=== PATIENT | female | born 1985 | race Caucasian/White ===

== ENCOUNTER → 2022-03-21 15:59 | Outpatient (BNVA) | payer BC, MEDICAID, SELFPAY | PROVIDERS: Family Provider Family Medicine; PCP Family Medicine; Visit Provider Family Medicine | DX: Z34.80 Encounter for supervision of other normal pregnancy, unspecified trimester (principal) | CPT/HCPCS: 84443; 85025; 86592; 86762; 87086; 87624 ==

== ENCOUNTER 2022-04-15 14:50 | Outpatient (CLI) | payer BC, MEDICAID, SELFPAY ==
--- NOTE | 2022-04-15 15:07 | US_ITS ---
WS: [id number] EARLY OBSTETRICAL ULTRASOUND (<14 WEEKS). HISTORY: DATING COMPARISON: None available. Single intrauterine gestational sac is identified. Cardiac activity at 167 BPM. [place]-rump length pedro sures 2.0 cm which corresponds to a gestation of 8w4d. Normal-appearing yolk sac and amnion demonstra shila. Very smallsubchorionic hemorrhage.Subchorionic hemorrhage is adjacent to the LEFT lateral gestat ional sac and measures 15 x 6 mm. No free fluid. Normal size ovaries with no mass. US/US OB <= 14 weeks fetus [id number] IMPRESSION: 1. Single intrauterine gestation of 8 weeks 4 days with an EDC of 11/21/2022. 2. Very small subchorionic hemorrhage.
== END 2022-04-15 14:51 | disposition home or self-care (01) ==
LOC: RAD 14:59
PROVIDERS: PCP Family Medicine; Visit Provider Family Medicine
DX: Z36.87 Encounter for antenatal screening for uncertain dates (principal)
CPT/HCPCS: 76801

== ENCOUNTER → 2022-04-29 15:12 | Outpatient (BNVA) | payer BC, MEDICAID, SELFPAY | PROVIDERS: PCP Family Medicine; Visit Provider Family Medicine | DX: Z34.90 Encounter for supervision of normal pregnancy, unspecified, unspecified trimester (principal) | CPT/HCPCS: 80307; 86803; 87086; 87340 ==

== ENCOUNTER → 2022-06-25 15:03 | Outpatient (BNVA) | payer BC, MEDICAID, SELFPAY | PROVIDERS: PCP Family Medicine; Visit Provider Family Medicine | DX: Z34.80 Encounter for supervision of other normal pregnancy, unspecified trimester (principal) | CPT/HCPCS: 86850; 86900; 87806 ==

== ENCOUNTER 2022-07-09 14:21 | Outpatient (CLI) | payer BC, MEDICAID, SELFPAY ==
--- NOTE | 2022-07-09 14:39 | US_ITS ---
WS: [id number] OBSTETRICAL ULTRASOUND COMPLETE HISTORY: ANATOMY COMPARISON: 04/15/2022 Single intrauterine gestation in breech presentation. Cervix is Closed and normal length. Cervical length is 3.3 cm. Normal amount of amniotic fluid surrounds the fetus. Placenta: Posterior, no previa or abruption. Placenta grade 1 There is a thick bandlike structure extending from the inferior margin of the placenta inferiorly tow ards the cervix. There is a small amount of fluid on both sides of this bandlike structure. This is n ot a placental the placental attachment to suggest a circumvallate placenta. This may be attached to the uterine wall or very closely associated with the placenta. Heart: 157 BPM. Four chambers are identified. RIGHT and LEFT outflow tracts are unremarkable. Anatomy: Intracranial structures and spine are normal. kidneys, stomach and urinary bladd er are unremarkable. Abdominal wall, three-vessel cord and cord insertion site are normal. 4 extremities are present. profile: Unremarkable. Gender: Female. measurements: BPD = 4.4 cm = 19w2d HC = 17.4 cm = 20w0d AC = 15.3 cm = 20w3d FL = 3.2 cm = 20w0d EFW: 337 g. Biometry is internally concordant. AGA by ultrasound: 20w0d ROLO by ultrasound: 11/26/2022 Measurements are internally concordant. US/US OB >= 14 weeks fetus [id number] IMPRESSION: 1. Single intrauterine gestation of 20w0d with an ROLO of 11/26/2022. 2. Unremarkable screening survey of anatomy. 3. Lower uterine bandlike structure consistent with an adhesion versus synechi ae. Typically these will resolve by the third trimester. This does not have the appearance of a circumvallate placenta. Consider third term follow-up evaluati on. This adhesion or band like structure does extend very close to the cervix. Typically these are of no consequence.
== END 2022-07-09 14:22 | disposition home or self-care (01) ==
PROVIDERS: PCP Family Medicine; Visit Provider Family Medicine
DX: Z36.89 Encounter for other specified antenatal screening (principal); Z3A.20 20 weeks gestation of pregnancy
CPT/HCPCS: 76805

== ENCOUNTER 2022-09-06 14:51 | Outpatient (CLI) | payer BC, MEDICAID, SELFPAY ==
[2022-09-06 16:45] LABS: Glucose Tolerance 1 Hour Gest 172 mg/dL
== END 2022-09-06 14:52 | disposition home or self-care (01) ==
LOC: LAB 14:52
PROVIDERS: PCP Family Medicine; Visit Provider Family Medicine
DX: Z34.80 Encounter for supervision of other normal pregnancy, unspecified trimester (principal)
CPT/HCPCS: 36415; 82950

== ENCOUNTER → 2022-10-10 14:58 | Outpatient (BNVA) | payer BC, MEDICAID, SELFPAY | PROVIDERS: PCP Family Medicine; Visit Provider Family Medicine | DX: Z36.89 Encounter for other specified antenatal screening (principal) | CPT/HCPCS: 76816 ==

== ENCOUNTER → 2022-10-21 16:03 | Outpatient (BNVA) | payer BC, MEDICAID, SELFPAY | PROVIDERS: PCP Family Medicine; Visit Provider Family Medicine | DX: Z34.90 Encounter for supervision of normal pregnancy, unspecified, unspecified trimester (principal) | CPT/HCPCS: 87081 ==

== ENCOUNTER 2022-10-29 04:01 | Outpatient (CLI) | payer BC, MEDICAID, SELFPAY ==
[2022-10-29] VITALS (12 sets, daily range): BP systolic 102–122; BP diastolic 59–76; PULSE 93–129; RESP 18; TEMP 35.9; BMI 27.1
== END 2022-10-29 06:23 | disposition home or self-care (01) ==
LOC: OPOB 04:02 → OBGYN 04:03
PROVIDERS: PCP Family Medicine; Visit Provider Family Medicine
DX: O26.899 Other specified pregnancy related conditions, unspecified trimester (principal); Z3A.00 Weeks of gestation of pregnancy not specified; R10.9 Unspecified abdominal pain
CPT/HCPCS: 59025; 99211

== ENCOUNTER 2022-10-31 08:30 | Outpatient (CLI) | payer BC, MEDICAID, SELFPAY ==
[2022-10-31 08:32] VITALS: BMI 27.3
[2022-10-31 08:41] VITALS: BP 129/78; PULSE 115
[2022-10-31 09:44] VITALS: BP 104/65; PULSE 144; RESP 15
== END 2022-10-31 09:49 | disposition home or self-care (01) ==
LOC: OPOB 08:30 → OBGYN 08:31
PROVIDERS: PCP Family Medicine; Visit Provider Family Medicine
DX: O26.899 Other specified pregnancy related conditions, unspecified trimester (principal); Z3A.00 Weeks of gestation of pregnancy not specified; N89.8 Other specified noninflammatory disorders of vagina
CPT/HCPCS: 59025; 83986; 99211

== ENCOUNTER 2022-11-17 21:52 | Outpatient (CLI) | payer BC, MEDICAID, SELFPAY ==
[2022-11-17] VITALS (7 sets, daily range): BP systolic 110–133; BP diastolic 70–80; PULSE 77–86; RESP 16; TEMP 35.9–36; BMI 27.9
[2022-11-17 22:41] LABS: Nitrazine Paper, PH Negative
== END 2022-11-17 23:42 | disposition home or self-care (01) ==
LOC: OPOB 21:53 → OBGYN 22:02
PROVIDERS: PCP Family Medicine; Visit Provider Family Medicine
DX: O26.899 Other specified pregnancy related conditions, unspecified trimester (principal); Z3A.00 Weeks of gestation of pregnancy not specified; N89.8 Other specified noninflammatory disorders of vagina
CPT/HCPCS: 59025; 83986; 99211

== ENCOUNTER 2022-11-21 11:12 | Inpatient (IN) | payer BC, MEDICAID, SELFPAY ==
[2022-11-21] VITALS (64 sets, daily range): BP systolic 92–154; BP diastolic 50–82; PULSE 82–171; RESP 18–20; TEMP 36.1–36.6; O2SAT 79–99; BMI 27.5
--- NOTE | 2022-11-21 09:36 | PM.HP ---
Providers/Chief Complaint Primary Care Provider: Vasquez Quarles MD Chief Complaint: contractions History of Present Illness Le Das is a 37 year old @ 39.5 weeks by 8 wk US inconsistent with LMP c/w 5 wk US. Her preg is c/b FOB with spina bifida in family, GBS bacteruria, elevated 1-hr GTT with normal 3-hr GTT The patient has been having contractions off and on, however the suddenly became stronger and woke her up out of her sleep at 7:00 on the morning of admission. They have been coming every 1 to 3 minutes. She is rating them a 9 out of 10 on the pain scale. The patient has not had any leakage of fluid or bleeding. Patient denies chest pains, shortness of breath, nausea, vomiting, diarrhea, constipation, dysuria, fevers. Medications/Allergies Home Medications Medication Instructions Recorded Confirmed Last Taken Type prenat.vits,delmi,ynv-[id number] 1 tab PO DAILY 09/30/22 11/19/22 11/17/22 History Allergies Allergy/AdvReac Type Severity Reaction Status Date / Time Sulfa (Sulfonamide Allergy Severe hives Verified 11/17/22 22:03 Antibiotics) PFSH Acute PFSH: Family History Mother Hypertension Father Hypertension Hyperlipidemia Grandmother Thyroid condition paternal Denies family history of Colon cancer Ovarian cancer Diabetes Clotting disorder Heart disease Breast cancer Anesthesia complication Bleeding disorder Uterine cancer Stroke Social History Smoking and tobacco status: never smoked Alcohol intake: never Vitals/I&O/Wt Last Vital Signs Pulse 107 H 11/21/22 09:15 BP 120/82 11/21/22 09:15 Weight last 48 hrs Weight 141 lb Physical Exam Narrative: General: Alert and oriented x3 Eyes: Pupils equal round and reactive to light and accommodation Mouth: Mucous membranes moist, pharynx non-erythematous Cardiac: Regular rate and rhythm without murmurs Lungs: Clear to auscultation bilaterally without wheezes, crackles or rhonchi Abdomen: Soft, non-tender, fundus consistent with gestational age Extremities: Trace edema in the bilateral lower extremities A&P Assessment and plan (1) Supervision of normal intrauterine in multigravida: The patient is an active labor and was found to be 4.5 cm upon arrival at OB. The patient was 3 cm in clinic on 11/19/2022. The patient is having contractions every 1 to 3 minutes and heart tones are in the mid 140s with moderate variability and good accelerations. She has a category 1 tracing. We will proceed with admission and start antibiotics for GBS prophylaxis. The patient may have Stadol if needed for pain management early. She may be set up for an epidural when she is ready. All questions were answered. Proceed with routine intrapartum management otherwise. Attestations Medical Necessity Statement*: The patient will be here for greater than 2 midnights due to routine intrapartum and management of labor and delivery. Coding Level of Care Code Acute [employer] App[employer]ice for Mohan Goddard Diagnoses Supervision of normal intrauterine in multigravida Z34.80
[2022-11-21] MEDS: lactated ringers 1,000 ML 999 ML IV (09:59)
[2022-11-21] MEDS: ampicillin 2,000 MG in sodium chloride 0.9% (plus) 50 ML 100 MG IV (09:59)
[2022-11-21 10:50] LABS: Basophils % 0.4 %; Eosinophils % 0.4 %; Hematocrit 39.5 % (37.0-47.0); Hemoglobin 13.1 g/dL (11.5-15.3); Mean Corpuscular HGB Conc 33.2 g/dL (30.0-36.0); Mean Corpuscular Volume 96.3 fl (81-99); Mean Platelet Volume 10.2 fL (7.4-10.4); Monocytes # 0.7 10^3/uL (0.2-0.9); Monocytes % 6.7 %; Neutrophils # 6.88 10^3/uL (1.8-7.7); Nucleated Red Blood Cells % 0 %; Platelet Count 277 10^3/cmm (130-400); Red Cell Distribution Width 12.5 % (12.1-15.1); White Blood Count 10.7 10^3/uL (4.0-10.0)
--- NOTE | 2022-11-21 11:30 | ANES.PREANE2 ---
Pre-Anesthetic Assessment Height/Weight: Height 1.52 m Weight 63.957 kg Temp Pulse Resp BP Pulse Ox O2 Del Method 97.8 F 89 18 110/59 98 11/21/22 22:45 11/22/22 04:04 11/21/22 09:30 11/22/22 04:04 11/21/22 13:10 11/21/22 11:53 Preop Diagnosis: IUP + undesired fertility Operation Date: 11/22/22 07:10 Proposed Procedures p Post Bilateral Tubal Ligation(Bilateral) - Hesham Bernstein MD Familial anesthetic complications: none Was Beta Dennys taken within 24 hours: N/A Was Clonidine taken within 24 hours: N/A Social No alcohol and No tobacco Exam alert, oriented x 3, clear to auscultation bilaterally and regular rate & rhythm Airway Mallampati: Class II Dentition: full Anesthetic Plan ASA status: 2 Anesthesia: Regional (specify below) Risk of > 500 ml blood loss (7ml/kg in children): Yes, adequate IV access and fluids planned Medications/Allergies Home Medications Medication Instructions Recorded Confirmed Last Taken Type prenat.vits,delmi,hej-lklr-yhhma 1 tab PO DAILY 09/30/22 11/21/22 11/17/22 History Allergies Allergy/AdvReac Type Severity Reaction Status Date / Time Sulfa (Sulfonamide Allergy Severe hives Verified 11/17/22 22:03 Antibiotics) Current Medications Generic Name Dose Route Start Last Admin Trade Name Freq PRN Reason Stop Dose Admin Dextrose/Lactated Ringer's 1,000 mls @ 125 mls/hr 11/21/22 09:30 11/22/22 05:33 Dextrose 5%-Lactated Ringers IV Not Given .Q8H ENRICO Ampicillin Sodium 1,000 mg/ 50 mls @ 100 mls/hr 11/21/22 13:30 11/22/22 05:34 Sodium Chloride IV Not Given Q4H ENRICO Protocol Ropivacaine 200 mg in 100 mls @ 13 mls/hr 11/21/22 09:45 11/22/22 05:33 Naropin Premix EPIDURAL Infused .Q7H42M ENRICO Infusion Lactated Ringer's 1,000 mls @ 999 mls/hr 11/21/22 09:32 11/21/22 11:00 Lactated Ringers IV Infused .Q1H1M PRN Infusion See label comments Oxytocin 30 unit in 500 mls @ 1 mls/hr 11/21/22 13:00 11/21/22 21:38 Pitocin IV Infused .Q24H ENRICO Titration Protocol 1 MILLIUNIT/MIN Lanolin 1 applic 11/21/22 18:10 11/21/22 21:27 Lanolin Oint 7 Gm TOPICAL 1 applic PRN PRN Administration DRYNESS PFSH Anesthesia Family History Mother Hypertension Father Hypertension Hyperlipidemia Grandmother Thyroid condition paternal Denies family history of Colon cancer Ovarian cancer Diabetes Clotting disorder Heart disease Breast cancer Anesthesia complication Bleeding disorder Uterine cancer Stroke Social History Smoking and tobacco status: never smoked Alcohol intake: never Female Reproductive History : 2 Data Anesthesia 11/22/22 06:15 Short CBC 11/21/22 11/22/22 Range/Units 10:03 06:15 WBC 10.7 H 13.4 H (4.0-10.0) 10^3/uL Hgb 13.1 12.3 (11.5-15.3) g/dL Hct 39.5 36.7 L (37.0-47.0) % MCV 96.3 97.3 (81-99) fl Plt Count 277 243 (130-400) 10^3/cmm Neut % (Auto) 64.0 % Neut # (Auto) 6.88 (1.8-7.7) 10^3/uL Cardiac Studies: No Data to Display
--- NOTE | 2022-11-21 11:47 | ANES.PROC ---
Anesthesia Procedures Procedure/Date: 11/21/22 Epidural: Time Out Performed: Yes Consents Signed: Procedure Consent and NPO Consent Consent: requested by attending/covering physician, from patient, risks and benefits reviewed and patient agrees to proceed Lumbar Level: L3-L4 Epidural position: sitting Epidural procedure: sterile prep of area (betadine), 1% lidocaine to numb the area (3 mLs), neg for paresthesia, test dose given, 1.5% xylocaine 1:200k epi (3 mLs/ 2 mLs), 0.2% Ropivacaine bolus ml (5 mLs), placed PCEA, no systemic response, sterile dressing applied, L.U.D. no apparent complications and 0.2% Ropiavacaine @ mls/hr (13) Additional Comments: BRADY 5.5cm, catheter threaded to 11cm 2 attempts
[2022-11-21] MEDS: dextrose 5%-lactated ringers 1,000 ML 125 ML IV (12:59)
--- NOTE | 2022-11-21 13:02 | PC.SOCIAL ---
Update CM spoke with primary nurse Marta who stated patient has a poa scanned into the chart and patient had no needs from CM.
[2022-11-21] MEDS: oxytocin 30 UNIT/500 ML BAG IV (13:07)
[2022-11-21] MEDS: ampicillin 1,000 MG in sodium chloride 0.9% (plus) 50 ML 100 MG IV (14:22)
--- NOTE | 2022-11-21 17:59 | P.PCNOB_ITS ---
Delivery Note: Date of delivery: November 21, 2022 Pre-delivery diagnoses: 1. Serum at 39.5 weeks gestation 2. Spontaneous labor 3. GBS bacteria 4. Elevated 1 hour GTT with normal 3-hour GTT Post-delivery diagnoses: 1. Serum status post spontaneous vaginal delivery at 39.5 weeks gestation 2. Spontaneous labor 3. GBS bacteria 4. Elevated 1 hour GTT with normal 3-hour GTT 5. Delivery of healthy infant female weighing 7 pounds 6 ounces with Apgars of 9 and 9 Procedure: Spontaneous vaginal delivery Delivering Physician: Vasquez Quarles MD Estimated blood loss (mL): 50 Findings: 1. Healthy female weighing 7 pounds 6 ounces with Apgars of 9 and 9 2. Intact placenta with central umbilical cord insertion site. Pre-Delivery Course: Le Das is a 37 year old @ 39.5 weeks by 8 wk US inconsistent with LMP c/w 5 wk US. Her preg is c/b FOB with spina bifida in family, GBS bacteruria, elevated 1-hr GTT with normal 3-hr GTT The patient presented to labor and delivery triage due to contractions that started at 7 AM on 11/21/2022. Her contractions gradually increased and she presented 2 hours later. She was 4.5 cm dilated and héctor every 1 to 3 minutes. She was in obvious labor so she was kept for intrapartum management of labor. The patient was started on ampicillin for GBS prophylaxis and an epidural was placed. The patient changed to 6 cm on her own. Her extractions then began to space out to every 4 to 6 minutes. For this reason IV Pitocin was added to augment labor. The patient continued to make good change and AROM was performed at 1558 on 11/21/2022. The patient was 8 cm at that time. A small amount of clear fluid was noted. The patient continued to contract and was complete by 1730 on 11/21/2022. Delivery: The patient began pushing at 1736 on 11/21/2022. The patient pushed well and after 2 contractions, the infant delivered in the OA position at 1739 on 11/21/2022. There was no nuchal cord present. The left shoulder was anterior shoulder and it delivered with ease. The rest of the delivered with ease. The infant's mouth and nose were bulb suctioned by myself and the was crying immediately upon delivery. The was placed on the mother's chest where the nurses were waiting to care for her. The cord was then clamped after approximately 1 minute. The cord was cut by the 's father. Cord blood was obtained and the cord was then drained of blood. Traction was then placed on the umbilical cord and use massage was carried out. The placenta delivered without difficulty at 1744 on 11/21/2022. The placenta was noted to be intact with a central umbilical cord insertion site and a membrane that attached from the outer membrane around the umbilical cord. This was thin and not tight. The cervix was inspected and no lacerations were noted. The vaginal wall was inspected and the very mild abrasion was noted in the perineal region. This was not bleeding and did not require suturing. The uterus was massaged and there was very little bleeding. Currently both the mother and are doing well. History History History 2 Term 2 0 Miscarriages/Ectopic 0 Living Children 2 Past Pregnancies Del. Date GA/Weeks Outcome Route Wt Inf Gender Labor Lgth Comp. Anesth esia Location 01/03/19 38 live - full term Vaginal 7 lb [address] Quarles, at [facility] [place], [place] 11/21/22 39 live - full term Vaginal 7 lb 6 oz Female 10.5 hrs [facility] Delivery Date: 11/21/22 Last Updated by: Vasquez Quarles MD Spontaneous labor A&P Assessment and plan (1) Spontaneous vaginal delivery: Coding Level of Care Code Acute Code for Chg Fwd Diagnoses Spontaneous vaginal delivery O80
[2022-11-21] MEDS: lanolin oint 7 gm 1 APPLIC TOPICAL (21:27)
--- NOTE | 2022-11-21 21:27 | PC.NURSE ---
This nurse offered Ibuprofen 800mg at 2126, patient states she does not want the medication because medication like that makes her sleepy
[2022-11-22] VITALS (25 sets, daily range): BP systolic 99–128; BP diastolic 57–80; PULSE 75–134; RESP 15–18; TEMP 36.4; O2SAT 98–100
[2022-11-22] MEDS: lactated ringers 1,000 ML 999 ML IV ×2 (06:10→07:00)
[2022-11-22 06:27] LABS: Hematocrit 36.7 % (37.0-47.0); Hemoglobin 12.3 g/dL (11.5-15.3); Mean Corpuscular HGB Conc 33.5 g/dL (30.0-36.0); Mean Corpuscular Hemoglobin 32.6 pg (28.0-34.0); Mean Corpuscular Volume 97.3 fl (81-99); Mean Platelet Volume 9.9 fL (7.4-10.4); Platelet Count 243 10^3/cmm (130-400); Red Blood Count 3.77 10^6/uL (4.1-5.3); Red Cell Distribution Width 12.6 % (12.1-15.1); White Blood Count 13.4 10^3/uL (4.0-10.0)
[2022-11-22] MEDS: famotidine 20 mg/2 mL INJ IVP (06:46)
[2022-11-22] MEDS: metoclopramide 5 mg/mL SDV 2 mL 10 MG IVP (06:47)
[2022-11-22] MEDS: citric acid-sodium citrate 30 mL UDC PO (06:47)
--- NOTE | 2022-11-22 06:49 | ANES.PREANE2 ---
Pre-Anesthetic Assessment Height/Weight: Height 1.52 m Weight 63.957 kg Temp Pulse Resp BP Pulse Ox O2 Del Method 97.8 F 89 18 110/59 98 11/21/22 22:45 11/22/22 04:04 11/21/22 09:30 11/22/22 04:04 11/21/22 13:10 11/21/22 11:53 Preop Diagnosis: IUP + undesired fertility Operation Date: 11/22/22 07:10 Proposed Procedures p Post Bilateral Tubal Ligation(Bilateral) - Hesham Bernstein MD Was Beta Dennys taken within 24 hours: N/A Was Clonidine taken within 24 hours: N/A Last intake: 1929 Last Intake: 20:00 Exam alert, oriented x 3 and clear to auscultation bilaterally Airway Mallampati: Class II History/ROS No significant history except as noted and No significant complaints Pulmonary None reported CV/HEM None reported None reported Hepatic None reported Metabolic None reported Musc/skel None reported Neuropsych Anxiety Anesthetic Plan ASA status: 2 Anesthesia: MAC Risk of > 500 ml blood loss (7ml/kg in children): No Medications/Allergies Home Medications Medication Instructions Recorded Confirmed Last Taken Type prenat.vits,delmi,gdv-[id number] 1 tab PO DAILY 09/30/22 11/21/22 11/17/22 History Allergies Allergy/AdvReac Type Severity Reaction Status Date / Time Sulfa (Sulfonamide Allergy Severe hives Verified 11/17/22 22:03 Antibiotics) Current Medications Generic Name Dose Route Start Last Admin Trade Name Freq PRN Reason Stop Dose Admin Dextrose/Lactated Ringer's 1,000 mls @ 125 mls/hr 11/21/22 09:30 11/22/22 05:33 Dextrose 5%-Lactated Ringers IV Not Given .Q8H ENRICO Ampicillin Sodium 1,000 mg/ 50 mls @ 100 mls/hr 11/21/22 13:30 11/22/22 05:34 Sodium Chloride IV Not Given Q4H ENRCIO Protocol Ropivacaine 200 mg in 100 mls @ 13 mls/hr 11/21/22 09:45 11/22/22 05:33 Naropin Premix EPIDURAL Infused .Q7H42M ENRICO Infusion Lactated Ringer's 1,000 mls @ 999 mls/hr 11/21/22 09:32 11/21/22 11:00 Lactated Ringers IV Infused .Q1H1M PRN Infusion See label comments Oxytocin 30 unit in 500 mls @ 1 mls/hr 11/21/22 13:00 11/21/22 21:38 Pitocin IV Infused .Q24H ENRICO Titration Protocol 1 MILLIUNIT/MIN Lanolin 1 applic 11/21/22 18:10 11/21/22 21:27 Lanolin Oint 7 Gm TOPICAL 1 applic PRN PRN Administration DRYNESS PFSH Anesthesia Family History Mother Hypertension Father Hypertension Hyperlipidemia Grandmother Thyroid condition paternal Denies family history of Colon cancer Ovarian cancer Diabetes Clotting disorder Heart disease Breast cancer Anesthesia complication Bleeding disorder Uterine cancer Stroke Social History Smoking and tobacco status: never smoked Alcohol intake: never Female Reproductive History : 2 Data Anesthesia 11/22/22 06:15 Short CBC 11/21/22 11/22/22 Range/Units 10:03 06:15 WBC 10.7 H 13.4 H (4.0-10.0) 10^3/uL Hgb 13.1 12.3 (11.5-15.3) g/dL Hct 39.5 36.7 L (37.0-47.0) % MCV 96.3 97.3 (81-99) fl Plt Count 277 243 (130-400) 10^3/cmm Neut % (Auto) 64.0 % Neut # (Auto) 6.88 (1.8-7.7) 10^3/uL Cardiac Studies: No Data to Display
--- NOTE | 2022-11-22 07:58 | P.OP_ITS ---
Operative Report Date of procedure: November 22, 2022 Pre-op diagnosis: Preop Diagnosis IUP + undesired fertility Post-op diagnosis: same Procedure done: bilateral partial salpingectomy Specimens removed/disposition: Left and right fallopian tube segment Surgeon: Hesham Bernstein MD Estimated blood loss: Less than 5 mL IV fluids (mL): 300 Complications: None Brief History: Mrs. Das 37-year-old female status post continuous vaginal desire permanent sterilization requesting a tubal ligation. The patient was counseled regarding all methods of contraception, risk and complications. She elected to continue to proceed with the tubal ligation as planned. partial salpingectomy is associated with lower failure rates than interval tubal occlusions done via laparoscopy. She was counseled regarding the procedure, alternative, risks and complications. Complications of tubal sterilization include problems like but not limited to anesthesia, hemorrhage, organ damage, and mortality. Procedure: The patient was informed of the risks and benefits of the procedure. Risks included but were not limited to bleeding, infection, and injury to internal organs. The patient was counseled on the risk of sterilization failure. The patient was informed that in the event a occurs the risk of ectopic is increased. The patient was counseled that bilateral tubal ligation is intended to be permanent and nonreversible. She was also counseled that there are nonpermanent forms of control available to her. The patient expressed understanding of the risks involved, all questions were answered, and the patient consented to the procedure. After assuring informed consent. The patient was taken to the operating room and general anesthesia administered. Time-out procedure was performed. A small, transverse, infraumbilical skin incision was made with a scalpel, and the incision was carried down through the underlying fascia until the peritoneum was identified and entered. The left fallopian tube was identified, brought into the incision and grasped with a [place] clamp. The tube was then followed out to the fimbria. An avascular midsection of the fallopian tube was grasped with a [place] clamp and brought into a knuckle. Using the [employer] device the left falopian tube was clamped at midsec tion, seal and cut. The midsection of fallopian tube specimen was sent to pathology. Excellent hemostasis was noted, and the tube was returned to the abdomen. The same procedure was performed on the opposite fallopian tube. The fascia was then closed with O-Vicryl in a single layer. The skin was closed with 3-O Monocryl in a subcuticular fashion. The patient tolerated the procedure well. Needle and sponge counts were correct times 3.
[2022-11-22] MEDS: hyDROXYzine 25 mg Capsule 50 MG PO (08:33)
[2022-11-22] MEDS: ketorolac 30 mg/mL INJ IVP (11:22)
--- NOTE | 2022-11-22 13:58 | PM.PN ---
Subjective Subjective: The patient had her bilateral tubal ligation done this morning. The patient nurse notes that she was anxious afterwards but with medications she has been able to get some rest. The patient continues to breast-feed. The patient denies any chest pains, shortness of breath, nausea, vomiting, diarrhea, constipation. She is ambulating. Vitals/I&O/Wt Last Vital Signs Temp 97.8 F 11/21/22 22:45 Pulse 80 11/22/22 11:58 Resp 16 11/22/22 08:21 BP 112/66 11/22/22 11:58 Pulse Ox 100 11/22/22 08:21 O2 Del Method 11/22/22 08:21 11/21/22 11/22/22 11/22/22 22:59 06:59 14:59 Intake Total 1499.367 / 2600.000 100 / 2700.000 1300 / 1300 Output Total 600 / 600 300 / 900 5 / 5 Balance 899.367 / 2000.000 -200 / 8189.587 1513 / 1295 Weight last 48 hrs Weight 141 lb Physical Exam Narrative: General: Somnolent but following commands. Cardiac: Regular rate and rhythm without murmurs Lungs: Clear to auscultation bilaterally without wheezes, crackles or rhonchi Abdomen: Soft, mild tenderness over uterus. The uterus is firm and 2 cm below the umbilicus. Incision is clean and dry without signs of infection or dehiscence. Extremities: Trace edema in the bilateral lower extremities Urinary Catheter Management: Mallory: Cath Placed During This Visit: yes, but has since been removed by the nurse Reason for Continuing Indwelling Catheter: Not indwelling catheter Urinary Catheter Date of Insertion: 11/21/22 Urinary Catheter Time of Insertion: 12:00 Date Urinary Catheter Removed: 11/21/22 Time Urinary Catheter Discontinued: 17:33 Data 11/22/22 06:15 A&P Assessment and plan (1) Spontaneous vaginal delivery: The patient is doing well after having a spontaneous vaginal delivery yesterday. She has had some anxiety after her bilateral tubal ligation this morning however and is quite somnolent from medications to help with this. We will need her to stay the night and follow to see how she does. If she is showing signs of improvement, will plan for discharge home tomorrow. Attestations Medical Necessity Statement*: The patient will be here for greater than 2 midnights due to routine intrapartum and management of labor and delivery. Coding Level of Care Code Acute Code for Chg Fwd Diagnoses Spontaneous vaginal delivery O80
[2022-11-22] MEDS: ibuprofen 800 mg tablet PO ×2 (15:53→21:13)
[2022-11-22] MEDS: docusate sodium 100 mg Capsule PO (18:09)
--- NOTE | 2022-11-22 19:48 | ANE.PACU2 ---
Inpatient post-anesthesia follow up: Airway intact: Yes Vital signs: Temperature 97.5 F Pulse Rate 85 Respiratory Rate 18 Blood Pressure 115/64 Pulse Oximetry 100 Oxygen Delivery Me thod Room Air Oxygen Flow Rate Fraction of Inspir ed Oxygen Hydration adequate: Yes Nausea and vomiting: No Pain level: 1 Mental status: Baseline
[2022-11-23 04:05] VITALS: BP 130/59; PULSE 90; RESP 15; TEMP 36.8
[2022-11-23 06:37] LABS: Hemoglobin 12.4 g/dL (11.5-15.3); Mean Corpuscular HGB Conc 32.6 g/dL (30.0-36.0); Mean Corpuscular Hemoglobin 32.3 pg (28.0-34.0); Mean Platelet Volume 10.2 fL (7.4-10.4); Platelet Count 264 10^3/cmm (130-400); Red Blood Count 3.84 10^6/uL (4.1-5.3); Red Cell Distribution Width 12.9 % (12.1-15.1)
--- NOTE | 2022-11-23 07:51 | PM.DCS ---
Discharge Providers Date of Admission: 11/21/22 11:12 Date of Discharge: November 23, 2022 Attending Provider at Admission: Vasquez Quarles MD Attending Provider at Discharge: Vasquez Quarles MD Primary Care Provider: Vasquez Quarles MD Diagnoses at Discharge Discharge Diagnosis (1) Spontaneous vaginal delivery: Status: Acute Other Information Additional DC diagnoses/information: 1.? Intrauterine status post spontaneous vaginal delivery at 39.5 weeks gestation 2.? Spontaneous labor 3.? GBS bacteria 4.? Elevated 1 hour GTT with normal 3-hour GTT 5.? Delivery of healthy female weighing 7 pounds 6 ounces with Apgars of 9 and 9 6. Status post bilateral tubal ligation? Reason for Visit Reason for Visit: contractions Brief History: Le Das is a 37 year old G2 now P2 status post spontaneous vaginal delivery @ 39.5 weeks by 8 wk US inconsistent with LMP c/w 5 wk US. Her preg was c/b FOB with spina bifida in family, GBS bacteruria, elevated 1-hr GTT with normal 3-hr GTT. Hospital Course Hospital Course The patient presented to labor and delivery triage due to contractions that started at 7 AM on 11/21/2022.? Her contractions gradually increased and she presented 2 hours later.? She was 4.5 cm dilated and héctor every 1 to 3 minutes.? She was in obvious labor so she was kept for intrapartum management of labor.? The patient was started on ampicillin for GBS prophylaxis and an epidural was placed.? The patient changed to 6 cm on her own.? Her extractions then began to space out to every 4 to 6 minutes.? For this reason IV Pitocin was added to augment labor.? The patient continued to make good change and AROM was performed at 1558 on 11/21/2022.? The patient was 8 cm at that time.? A small amount of clear fluid was noted.? The patient continued to contract and was complete by 1730 on 11/21/2022. The patient began pushing at 1736 on 11/21/2022.? The patient pushed well and after 2 contractions, the infant delivered in the OA position at 1739 on 11/21/2022.? The patient has had very little bleeding. The patient had a bilateral tubal ligation by Dr. Bernstein and initially had anxiety after the procedure, however is doing much better currently. The patient is breast-feeding and supplementing with formula. She is ambulating, voiding, passing gas and tolerating food by mouth. Currently the patient is doing well and ready for discharge home. Routine discharge instructions were discussed and all questions were answered. She will follow-up with myself in 6 weeks or sooner if needed. Follow-up with Dr. Bernstein per his recommendations. Physical Exam Narrative: General: Alert and oriented x3. No acute distress. Cardiac: Regular rate and rhythm without murmurs Lungs: Clear to auscultation bilaterally without wheezes, crackles or rhonchi Abdomen: Soft, mild tenderness over uterus. The uterus is firm and 2 cm below the umbilicus. Incision is clean and dry without signs of infection or dehiscence. Extremities: Trace edema in the bilateral lower extremities Urinary Catheter Management: Mallory: Cath Placed During This Visit: yes, but has since been removed by the nurse Reason for Continuing Indwelling Catheter: Not indwelling catheter Urinary Catheter Date of Insertion: 11/21/22 Urinary Catheter Time of Insertion: 12:00 Date Urinary Catheter Removed: 11/21/22 Time Urinary Catheter Discontinued: 17:33 Discharge Data Studies Completed and Pending Pending at discharge Category Date Time Status Pathology: Surgical [PTH] Routine Pth 11/22/22 09:54 Received Laboratory Results WBC 11.0 10^3/uL (4.0-10.0) H 11/23/22 05:35 RBC 3.84 10^6/uL (4.1-5.3) L 11/23/22 05:35 Hgb 12.4 g/dL (11.5-15.3) 11/23/22 05:35 Hct 38.0 % (37.0-47.0) 11/23/22 05:35 MCV 99.0 fl (81-99) 11/23/22 05:35 MCH 32.3 pg (28.0-34.0) 11/23/22 05:35 MCHC 32.6 g/dL (30.0-36.0) 11/23/22 05:35 RDW 12.9 % (12.1-15.1) 11/23/22 05:35 Plt Count 264 10^3/cmm (130-400) 11/23/22 05:35 MPV 10.2 fL (7.4-10.4) 11/23/22 05:35 Neut % (Auto) 64.0 % 11/21/22 10:03 Lymph % (Auto) 28.0 % 11/21/22 10:03 [facility] % (Auto) 6.7 % 11/21/22 10:03 Eos % (Auto) 0.4 % 11/21/22 10:03 Baso % (Auto) 0.4 % 11/21/22 10:03 Neut # (Auto) 6.88 10^3/uL (1.8-7.7) 11/21/22 10:03 Lymph # (Auto) 3.0 10^3/uL (0.8-4.8) 11/21/22 10:03 [facility] # (Auto) 0.7 10^3/uL (0.2-0.9) 11/21/22 10:03 Eos # (Auto) 0.0 10^3/uL (0.0-0.8) 11/21/22 10:03 Baso # (Auto) 0.0 10^3/uL (0.0-0.1) 11/21/22 10:03 Nucleated RBC % (auto) 0 % 11/21/22 10:03 Nucleated RBCs # 0.0 /100WBC 11/21/22 10:03 Vitals Last Vital Signs Temp 98.3 F 11/23/22 04:05 Pulse 90 11/23/22 04:05 Resp 15 11/23/22 04:05 BP 130/59 11/23/22 04:05 Pulse Ox 100 11/22/22 08:21 O2 Del Method 11/22/22 15:30 Discharge Plan Discharge Patient Disposition: Home Condition: Good Prescriptions: New docusate sodium 100 mg Capsule 100 mg PO BID PRN (Reason: constipation) Qty: 30 0RF ibuprofen 800 mg Tablet 800 mg PO TID Qty: 30 0RF Continued prenat.vits,delmi,[id number] Tablet 1 tab PO DAILY Discharge Orders: Discharge Order (Routine); Ordered 11/23/22 Ordered By: Vasquez Quarles Referrals: Vasquez Quarles MD [Primary Care Provider] - 6 Weeks Discharge Diet: Regular Discharge Activity: Limit activity as instructed Patient Instructions: Opioid Safety Activity Restrictions/Additional Instructions: Nothing per vagina for 6 weeks. Showers are recommended over baths for the first 6 weeks. Discharge Attestations Time Spent in Discharge Care*: less than 30 min Quality Metrics Clinical Quality Measures [ No reported AMI, CVA or VTE this stay] Coding Level of Care Code Acute Chg DC note Diagnoses Spontaneous vaginal delivery O80
[2022-11-23 09:50] VITALS: BP 113/82; PULSE 101; RESP 17; TEMP 36.7
== END 2022-11-23 11:30 | disposition home or self-care (01) | DRG 798 ==
LOC: OPOB 11:12 → OBGYN 11:12
PROVIDERS: Obstetrics & Gynecology; Admitting Provider Family Medicine; PCP Family Medicine; Visit Provider Family Medicine
PROC: 0UB70ZZ Excision of Bilateral Fallopian Tubes, Open Approach (ICD-10-PCS; CPT 58605; principal; 2022-11-22 07:00)
DX: O99.824 Streptococcus B carrier state complicating childbirth (principal); Z37.0 Single live birth; O99.345 Other mental disorders complicating the puerperium; F41.9 Anxiety disorder, unspecified; Z30.2 Encounter for sterilization; Z3A.39 39 weeks gestation of pregnancy; Z82.79 Family history of other congenital malformations, deformations and chromosomal abnormalities
CPT/HCPCS: 36415; 51702; 59025; 59409; 85025; 85027; 88302; 96374; 99211; J0290; J1885; J2250; J2590; J2704; J2765; J2795; J3490; J7120; J7121

== ENCOUNTER 2023-03-15 15:55 | Emergency (ER) | payer BC, MEDICAID, SELFPAY ==
[2023-03-15 16:02] VITALS: BP 110/78; PULSE 80; RESP 17; TEMP 36.7; O2SAT 98; BMI 21.4
--- NOTE | 2023-03-15 16:36 | XRR_ITS ---
PROCEDURE INFORMATION: Exam: XR Chest Exam date and time: 03/15/2023 4:51 PM Age: 38 years old Clinical indication: Shortness of breath; Additional info: SOB TECHNIQUE: Imaging protocol: Radiologic exam of the chest. Views: 1 view. COMPARISON: No relevant prior studies available. FINDINGS: Lungs: No consolidation. Pleural spaces: No pleural effusion. No pneumothorax. Heart/Mediastinum: No cardiomegaly. Bones/joints: Unremarkable. XR/XR chest 1V portable 20214 IMPRESSION: No acute abnormality demonstrated.
--- NOTE | 2023-03-15 16:36 | ECG_ITS ---
[facility] Test Date: 2023-03-15 Pat Name: Le Das Department: Room: Gender: Female Clinical Researcher: : 1985 Requested By: Vasquez Yost Order Number: [id number] Tessa MD: Drake Singh M.D. Measurements Intervals [place] Rate: 84 P: 52 IL: 134 QRS: 62 QRSD: 84 T: 50 QT: 362 QTc: 429 Interpretive Statements SINUS RHYTHM WITH SINUS ARRHYTHMIA NONSPECIFIC ST & T-WAVE ABNORMALITY No previous ECG available for comparison Electronically Signed On 03-16-2023 10:18:58 CDT by Drake Singh M.D. [id number] f
--- NOTE | 2023-03-15 16:38 | W.ED.SOB ---
Documented by User: STEVEN Manzo 03/17/23 08:22 HPI - SOB/Dyspnea General: Chief Complaint: Shortness of Breath/Dyspnea Stated Complaint: PANIC ATTACK Time Seen by Provider: 03/15/23 16:04 History of Present Illness: HPI Narrative: Patient is a 38-year-old female comes to the ED via EMS with shortness of breath. Patient reports that just prior to arrival she was sitting down feeding her 4-month-old baby and she all of a sudden started developing shortness of breath, chest tightness and a numbness tingling sensation in her chest and through her arms bilaterally. Endorses diaphoresis during episode. Denies any nausea/vomiting. She states she has never had any past episodes like this before and denies any history of panic attacks. Upon arrival to the ED she says her symptoms have improved quite a bit but she still feeling a little short of breath and describes having some chest heaviness. She denies any excessive caffeine intake this morning or any recent medication changes. Patient says she does not take any daily meds. For the past couple days patient has had upper respiratory symptoms that include a cough, nasal drainage and congestion, fevers and loss of taste and smell. She states that she took an at-home COVID test and it was negative. Denies any active chest pain here in the ED. Pt had vaginal delivery 4 months ago with no complications. Associated symptoms: Reports fever(s); Deny abdominal pain, chest pain, nausea, orthopnea, palpitations or vomiting Review of Systems Const: Reports: fever(s), body aches and fatigue; Denies: chills Eyes: Denies: change in vision or eye discomfort ENMT: Reports: nasal discharge and nasal congestion; Denies: throat pain or odynophagia Card: Reports: other (Chest tightness); Denies: chest pain, palpitations, edema, swelling of feet/ankles, dyspnea on exertion or orthopnea Resp: Reports: dyspnea and non-productive cough; Denies: productive cough GI: Denies: abdominal pain, nausea, vomiting, diarrhea, constipation or hematochezia : Denies: flank pain, dysuria or hematuria Musc: Denies: neck pain, back pain or extremity swelling Skin/Breast: Denies: rash or new lesions Neuro: Denies: headache(s), numbness in extremities or weakness in extremities PFSH ED PFSH: Medical History (Updated 03/15/23 @ 18:54 by STEVEN Sailnas) No pertinent family history Surgical History History of bilateral tubal ligation Dr Bernstein - 11/22/2022 Family History Mother Hypertension Father Hypertension Hyperlipidemia Grandmother Thyroid condition paternal Denies family history of Colon cancer Ovarian cancer Diabetes Clotting disorder Heart disease Breast cancer Anesthesia complication Bleeding disorder Uterine cancer Stroke Social History Smoking and tobacco status: never smoked Alcohol intake: never Substance/Drug Use: never Physical Exam Const: COMMON NORMALS: patient oriented x3, healthy appearing and alert GENERAL APPEARANCE: cooperative and comfortable HENMT: COMMON NORMALS: normocephalic HEAD & SCALP: normocephalic MOUTH: Normal oral and palatal mucosa present THROAT: posterior oropharynx normal and uvula midline Neck/C-Spine: COMMON NORMALS: supple GENERAL: Yes normal visual inspection Resp: COMMON NORMALS: normal respiratory effort, No retractions, No use of accessory muscles and clear to auscultation bilaterally AUSCULTATION: clear to auscultation bilaterally Cardio: COMMON NORMALS: regular rate, regular rhythm, S1 normal heart sound present, S2 normal heart sound present, No gallops present (Cardio), No clicks present (Cardio), No murmurs present (Cardio) and Peripheral pulses 2+ throughout RATE: regular rate RHYTHM: regular rhythm HEART SOUNDS: S1 normal heart sound present and S2 normal heart sound present PERIPHERAL PULSES: Peripheral pulses 2+ throughout GI: COMMON NORMALS: Normal to inspection, nondistended, normoactive bowel sounds present, Soft to palpation, non-tender and no masses PALPATION: Yes Soft to palpation : COMMON NORMALS: Yes no CVA tenderness BLADDER/KIDNEY EXAM: Yes no CVA tenderness Back/Pelvis: COMMON NORMALS: no CVA tenderness Extremity: COMMON NORMALS: normal to inspection Neuro: COMMON NORMALS: patient oriented x3 SENSORIUM/ORIENTATION: Yes alert GAIT: Yes Normal gait present Skin: GENERAL SKIN EXAM: dry skin Course Vital Signs: Vital signs: Vital Signs Temperature 98.1 F 03/15/23 16:02 Pulse Rate 99 03/15/23 19:03 Respiratory Rate 14 03/15/23 19:03 Blood Pressure 101/74 03/15/23 19:03 Pulse Oximetry 98 03/15/23 19:03 Oxygen Delivery Me thod Room Air 03/15/23 19:03 MDM - SOB/Dyspnea Medical Decision Making Patient is a 38-year-old female comes to the ED via EMS with shortness of breath. Patient reports that just prior to arrival she was sitting down feeding her 4-month-old baby and she all of a sudden started developing shortness of breath, chest tightness and a numbness tingling sensation in her chest and through her arms bilaterally. Endorses diaphoresis during episode. Here in the ED patient's symptoms have mostly resolved but she still feeling a little bit of chest tightness/shortness of breath. Vitals are stable. Exam of patient is benign and she appears in no acute distress or pain. Lungs are clear to auscultation bilaterally. All labs and imaging ordered and pending. Lab Data I reviewed the patient's lab results. 03/15/23 17:00 03/15/23 17:00 Labs/Radiology: Radiology Impressions Chest X-Ray 03/15/23 16:36 IMPRESSION: No acute abnormality demonstrated. Laboratory Results WBC 7.9 10^3/uL (4.0-10.0) 03/15/23 17:00 RBC 4.27 10^6/uL (4.1-5.3) 03/15/23 17:00 Hgb 13.3 g/dL (11.5-15.3) 03/15/23 17:00 Hct 40.3 % (37.0-47.0) 03/15/23 17:00 MCV 94.4 fl (81-99) 03/15/23 17:00 MCH 31.1 pg (28.0-34.0) 03/15/23 17:00 MCHC 33.0 g/dL (30.0-36.0) 03/15/23 17:00 RDW 11.8 % (12.1-15.1) L 03/15/23 17:00 Plt Count 295 10^3/cmm (130-400) 03/15/23 17:00 MPV 9.4 fL (7.4-10.4) 03/15/23 17:00 Neut % (Auto) 70.4 % 03/15/23 17:00 Lymph % (Auto) 22.2 % 03/15/23 17:00 [place] % (Auto) 6.1 % 03/15/23 17:00 Eos % (Auto) 0.4 % 03/15/23 17:00 Baso % (Auto) 0.6 % 03/15/23 17:00 Neut # (Auto) 5.55 10^3/uL (1.8-7.7) 03/15/23 17:00 Lymph # (Auto) 1.8 10^3/uL (0.8-4.8) 03/15/23 17:00 [place] # (Auto) 0.5 10^3/uL (0.2-0.9) 03/15/23 17:00 Eos # (Auto) 0.0 10^3/uL (0.0-0.8) 03/15/23 17:00 Baso # (Auto) 0.1 10^3/uL (0.0-0.1) 03/15/23 17:00 Nucleated RBC % (auto) 0 % 03/15/23 17:00 Nucleated RBCs # 0.0 /100WBC 03/15/23 17:00 D-Dimer 0.34 ug/mIFEU (0-0.59) 03/15/23 17:00 Sodium 140 mmol/L (136-145) 03/15/23 17:00 Potassium 3.7 mmol/L (3.5-5.1) 03/15/23 17:00 Chloride 104 mmol/L (98-107) 03/15/23 17:00 Carbon Dioxide 24 mmol/L (22-29) 03/15/23 17:00 Anion Gap 15.7 (5-19) 03/15/23 17:00 BUN 12 mg/dL (6-20) 03/15/23 17:00 Creatinine 0.9 mg/dL (0.5-0.9) 03/15/23 17:00 GFR Calculation 70.8 mL/min (90-130) L 03/15/23 17:00 Glucose 106 mg/dL (65-115) 03/15/23 17:00 Calculated Osmolality 290 mOsm/kg (285-295) 03/15/23 17:00 Calcium 8.9 mg/dL (8.5-10.5) 03/15/23 17:00 Total Bilirubin 0.2 mg/dL (0.15-1.2) 03/15/23 17:00 AST 23 U/L (0-32) 03/15/23 17:00 ALT 28 U/L (0-33) 03/15/23 17:00 Alkaline Phosphatase 81 U/L (35-105) 03/15/23 17:00 Troponin T Baseline 6 ng/L (0-10) 03/15/23 17:00 Total Protein 7.1 g/dL (6.6-8.7) 03/15/23 17:00 Albumin 4.4 g/dL (3.5-5.2) 03/15/23 17:00 Globulin 2.7 g/dL (1.3-4.6) 03/15/23 17:00 TSH 1.87 uIU/mL (0.27-4.20) 03/15/23 17:00 Discharge Plan Discharge Patient Disposition: Home Clinical Impression: Shortness of breath, Panic attack Condition: Stable Prescriptions: No Action prenat.vits,delmi,izl-vbfc-irstf Tablet 1 tab PO DAILY ibuprofen 800 mg Tablet 800 mg PO TID Qty: 30 0RF docusate sodium 100 mg Capsule 100 mg PO BID PRN (Reason: constipation) Qty: 30 0RF Discharge Orders: Discharge ED (Routine); Ordered 03/15/23 Ordered By: Jackelyn Alan Referrals: Vasquez Quarles MD [Primary Care Provider] - Discharge Diet: Usual diet Discharge Activity: Increase activity as tolerated Patient Instructions: Panic Attack (ED) Activity Restrictions/Additional Instructions: Your evaluation today revealed no acute concerns. We checked your thyroid which was normal. You showed no signs of an acute infection or anemia. Cardiac evaluation revealed no signs of any cardiac abnormalities or abnormal heart rhythms. We also checked you for concerns of a blood clot but, was also found to be negative. Based off of your presenting symptoms and a negative work-up, it is most likely due to anxiety and possible panic attack. As we discussed, this can be accompanied by chest pain or palpitations, dizziness, contractures of the hand or tingling or numbness of the fingers and face. I have given you some information about panic attacks look over at home. There is medication you can take to help with acute anxiety but, as it can cause a decrease in your milk supply, agree that treatment without medication at this time can be attempted. If you begin to have symptoms again, we do recommend trying to slow your breathing and if possible, use a paper bag to breathe into so you can try and breathe and more carbon dioxide which will help with your symptoms-especially any type of hand contractures you may be experiencing. We do recommend reaching out to your doctor regarding your evaluation here in the emergency department to make them aware so they can continue to check in and monitor you. However, if you have any acute concerns or severe returning of symptoms we do recommend returning here to the ER. Sign Out Sign Out Data: Patient Sign Out occurred on 03/15/23 at 17:11. Patient's care was discussed, and care was transferred from to STEVEN Salinas. Coding Level of Care Code ED Oncology Social Worker for Chg Fwd Documented by User: STEVEN Salinas 03/16/23 04:26 HPI - SOB/Dyspnea General: Chief Complaint: Shortness of Breath/Dyspnea Stated Complaint: PANIC ATTACK Time Seen by Provider: 03/15/23 16:04 [facility] ED PFSH: Medical History (Updated 03/15/23 @ 18:54 by STEVEN Salinas) No pertinent family history Surgical History History of bilateral tubal ligation Dr Bernstein - 11/22/2022 Family History Mother Hypertension Father Hypertension Hyperlipidemia Grandmother Thyroid condition paternal Denies family history of Colon cancer Ovarian cancer Diabetes Clotting disorder Heart disease Breast cancer Anesthesia complication Bleeding disorder Uterine cancer Stroke Social History Smoking and tobacco status: never smoked Alcohol intake: never Substance/Drug Use: never Course Vital Signs: Vital signs: Vital Signs Temperature 98.1 F 03/15/23 16:02 Pulse Rate 99 03/15/23 19:03 Respiratory Rate 14 03/15/23 19:03 Blood Pressure 101/74 03/15/23 19:03 Pulse Oximetry 98 03/15/23 19:03 Oxygen Delivery Me thod Room Air 03/15/23 19:03 MDM - SOB/Dyspnea Medical Decision Making Patient is a 38-year-old female comes to the ED via EMS with shortness of breath. Patient reports that just prior to arrival she was sitting down feeding her 4-month-old baby and she all of a sudden started developing shortness of breath, chest tightness and a numbness tingling sensation in her chest and through her arms bilaterally. Endorses diaphoresis during episode. Here in the ED patient's symptoms have mostly resolved but she still feeling a little bit of chest tightness/shortness of breath. Vitals are stable. Exam of patient is benign and she appears in no acute distress or pain. Lungs are clear to auscultation bilaterally. All labs and imaging ordered and pending. Jackelyn Alan PA-C: I received transfer of care at 1700. Patient's lab work came back generally unremarkable. Patient showed no signs of an elevated D-dimer no cardiac involvement. Thyroid was normal. Discussed all the negative findings on the patient's evaluation and explained that we were able to rule out the emergent concerns for her acute symptoms today. Given these negative findings, we can discuss the possibility of anxiety and panic attacks. Patient states she is quite stressed at this time given the lack of sleep, at home, and she states she had been having some issues with her milk supply. We discussed acute treatment for anxiety with hydroxyzine however, there is a side effect that could decrease milk production and, patient indicates she would prefer not to take any medication at this time. We went over treatment for acute panic attacks. Information about panic attacks provided to the patient for reference at home but, went over strict return precautions for symptoms unrelated to anxiety or panic attacks which should be seen and reevaluated through the emergency department. Patient verbalized understanding and agreement to treatment plan. Differential Diagnosis Likely community acquired pneumonia and pulmonary embolism (Abnormal thyroid, cardiac injury, anemia, anxiety) Lab Data 03/15/23 17:00 03/15/23 17:00 Labs/Radiology: Radiology Impressions Chest X-Ray 03/15/23 16:36 IMPRESSION: No acute abnormality demonstrated. Laboratory Results WBC 7.9 10^3/uL (4.0-10.0) 03/15/23 17:00 RBC 4.27 10^6/uL (4.1-5.3) 03/15/23 17:00 Hgb 13.3 g/dL (11.5-15.3) 03/15/23 17:00 Hct 40.3 % (37.0-47.0) 03/15/23 17:00 MCV 94.4 fl (81-99) 03/15/23 17:00 MCH 31.1 pg (28.0-34.0) 03/15/23 17: MCHC 33.0 g/dL (30.0-36.0) 03/15/23 17:00 RDW 11.8 % (12.1-15.1) L 03/15/23 17:00 Plt Count 295 10^3/cmm (130-400) 03/15/23 17:00 MPV 9.4 fL (7.4-10.4) 03/15/23 17:00 Neut % (Auto) 70.4 % 03/15/23 17:00 Lymph % (Auto) 22.2 % 03/15/23 17:00 [place] % (Auto) 6.1 % 03/15/23 17:00 Eos % (Auto) 0.4 % 03/15/23 17:00 Baso % (Auto) 0.6 % 03/15/23 17:00 Neut # (Auto) 5.55 10^3/uL (1.8-7.7) 03/15/23 17:00 Lymph # (Auto) 1.8 10^3/uL (0.8-4.8) 03/15/23 17:00 [place] # (Auto) 0.5 10^3/uL (0.2-0.9) 03/15/23 17:00 Eos # (Auto) 0.0 10^3/uL (0.0-0.8) 03/15/23 17:00 Baso # (Auto) 0.1 10^3/uL (0.0-0.1) 03/15/23 17:00 Nucleated RBC % (auto) 0 % 03/15/23 17:00 Nucleated RBCs # 0.0 /100WBC 03/15/23 17:00 D-Dimer 0.34 ug/mIFEU (0-0.59) 03/15/23 17:00 Sodium 140 mmol/L (136-145) 03/15/23 17:00 Potassium 3.7 mmol/L (3.5-5.1) 03/15/23 17:00 Chloride 104 mmol/L (98-107) 03/15/23 17:00 Carbon Dioxide 24 mmol/L (22-29) 03/15/23 17:00 Anion Gap 15.7 (5-19) 03/15/23 17:00 BUN 12 mg/dL (6-20) 03/15/23 17:00 Creatinine 0.9 mg/dL (0.5-0.9) 03/15/23 17:00 GFR Calculation 70.8 mL/min (90-130) L 03/15/23 17:00 Glucose 106 mg/dL (65-115) 03/15/23 17:00 Calculated Osmolality 290 mOsm/kg (285-295) 03/15/23 17:00 Calcium 8.9 mg/dL (8.5-10.5) 03/15/23 17:00 Total Bilirubin 0.2 mg/dL (0.15-1.2) 03/15/23 17:00 AST 23 U/L (0-32) 03/15/23 17:00 ALT 28 U/L (0-33) 03/15/23 17:00 Alkaline Phosphatase 81 U/L (35-105) 03/15/23 17:00 Troponin T Baseline 6 ng/L (0-10) 03/15/23 17:00 Total Protein 7.1 g/dL (6.6-8.7) 03/15/23 17:00 Albumin 4.4 g/dL (3.5-5.2) 03/15/23 17:00 Globulin 2.7 g/dL (1.3-4.6) 03/15/23 17:00 TSH 1.87 uIU/mL (0.27-4.20) 03/15/23 17:00 Discharge Plan Discharge Patient Disposition: Home Clinical Impression: Shortness of breath, Panic attack Condition: Stable Prescriptions: No Action prenat.vits,delmi,pjf-egab-kiccs Tablet 1 tab PO DAILY ibuprofen 800 mg Tablet 800 mg PO TID Qty: 30 0RF docusate sodium 100 mg Capsule 100 mg PO BID PRN (Reason: constipation) Qty: 30 0RF Discharge Orders: Discharge ED (Routine); Ordered 03/15/23 Ordered By: Jackelyn Alan Referrals: Vasquez Quarles MD [Primary Care Provider] - Discharge Diet: Usual diet Discharge Activity: Increase activity as tolerated Patient Instructions: Panic Attack (ED) Activity Restrictions/Additional Instructions: Your evaluation today revealed no acute concerns. We checked your thyroid which was normal. You showed no signs of an acute infection or anemia. Cardiac evaluation revealed no signs of any cardiac abnormalities or abnormal heart rhythms. We also checked you for concerns of a blood clot but, was also found to be negative. Based off of your presenting symptoms and a negative work-up, it is most likely due to anxiety and possible panic attack. As we discussed, this can be accompanied by chest pain or palpitations, dizziness, contractures of the hand or tingling or numbness of the fingers and face. I have given you some information about panic attacks look over at home. There is medication you can take to help with acute anxiety but, as it can cause a decrease in your milk supply, agree that treatment without medication at this time can be attempted. If you begin to have symptoms again, we do recommend trying to slow your breathing and if possible, use a paper bag to breathe into so you can try and breathe and more carbon dioxide which will help with your symptoms-especially any type of hand contractures you may be experiencing. We do recommend reaching out to your doctor regarding your evaluation here in the emergency department to make them aware so they can continue to check in and monitor you. However, if you have any acute concerns or severe returning of symptoms we do recommend returning here to the ER. Sign Out Sign Out Data: Patient Sign Out occurred on 03/15/23 at 17:11. Patient's care was discussed, and care was transferred from to STEVEN Salinas. Coding Level of Care Code ED Oncology Social Worker for Mohan Goddard
[2023-03-15 17:07] LABS: Basophils # 0.1 10^3/uL (0.0-0.1); Basophils % 0.6 %; Eosinophils % 0.4 %; Hematocrit 40.3 % (37.0-47.0); Hemoglobin 13.3 g/dL (11.5-15.3); Lymphocytes # 1.8 10^3/uL (0.8-4.8); Lymphocytes % 22.2 %; Mean Corpuscular Hemoglobin 31.1 pg (28.0-34.0); Mean Corpuscular Volume 94.4 fl (81-99); Mean Platelet Volume 9.4 fL (7.4-10.4); Monocytes # 0.5 10^3/uL (0.2-0.9); Monocytes % 6.1 %; Neutrophils # 5.55 10^3/uL (1.8-7.7); Neutrophils % 70.4 %; Nucleated Red Blood Cells % 0 %; Platelet Count 295 10^3/cmm (130-400); Red Blood Count 4.27 10^6/uL (4.1-5.3); Red Cell Distribution Width 11.8 % (12.1-15.1); White Blood Count 7.9 10^3/uL (4.0-10.0)
[2023-03-15 17:27] LABS: D Dimer 0.34 ug/mIFEU (0-0.59)
[2023-03-15 17:35] LABS: Alanine Aminotransferase 28 U/L (0-33); Albumin Level 4.4 g/dL (3.5-5.2); Alkaline Phosphatase 81 U/L (35-105); Anion Gap 15.7 (5-19); Aspartate Amino Transferase 23 U/L (0-32); Blood Urea Nitrogen 12 mg/dL (6-20); Calcium 8.9 mg/dL (8.5-10.5); Carbon Dioxide 24 mmol/L (22-29); Chloride 104 mmol/L (98-107); Globulin 2.7 g/dL (1.3-4.6); Glomerular Filtration Rate 70.8 mL/min (90-130); Glucose 106 mg/dL (65-115); Osmolality Calculated 290 mOsm/kg (285-295); Potassium 3.7 mmol/L (3.5-5.1); Sodium 140 mmol/L (136-145); Total Bilirubin 0.2 mg/dL (0.15-1.2); Total Protein 7.1 g/dL (6.6-8.7)
[2023-03-15 17:36] LABS: Troponin(5th) Baseline 6 ng/L (0-10)
[2023-03-15 17:51] LABS: Thyroid Stimulating Hormone 1.87 uIU/mL (0.27-4.20)
[2023-03-15 18:21] VITALS: BP 110/78; PULSE 84; RESP 15; O2SAT 98
[2023-03-15 19:03] VITALS: BP 101/74; PULSE 99; RESP 14; O2SAT 98
== END 2023-03-15 19:03 | disposition home or self-care (01) ==
PROVIDERS: Physician Assistant; Emergency Provider Physician Assistant; PCP Family Medicine
DX: R06.02 Shortness of breath (principal); F41.0 Panic disorder [episodic paroxysmal anxiety]
CPT/HCPCS: 71045; 80053; 84443; 84484; 85025; 85378; 93005; 99285